=== PATIENT | female | born 1960 | race Caucasian/White ===

== ENCOUNTER 2018-05-04 11:29 | Emergency (ER) | payer MEDICAID, OTHER ==
[~2018-05-04] VITALS: Ht 162.6 cm; Wt 68.0 kg
[2018-05-04] MEDS ORDERED: METOCLOPRAMIDE HCL 5MG/ml INJ 2ml VIAL IM ONE (16:00)
[2018-05-04] MEDS ORDERED: KETOROLAC TROMETH 60MG/2ML VIAL IM ONE (16:00)
[2018-05-04 16:02] VITALS: BP 155/81
== END 2018-05-04 16:31 | disposition home or self-care (01) ==
LOC: ER 11:31
DX: M54.16 Radiculopathy, lumbar region (principal); M19.90 Unspecified osteoarthritis, unspecified site
CPT/HCPCS: 72100; 96372; 99284; J1885; J2765